=== PATIENT | female | born 1960 | race African-American/Black ===

== ENCOUNTER 2018-06-13 09:26 | Outpatient (CLI) | payer MEDICARE ==
--- NOTE | 2018-06-13 11:13 | BD ---
DEXA BONE DENSITY STUDY: History: Post-menopausal. Lumbar Spine: BMD (g/cm2) L1 1.011 T-Score: +0.2 L2 1.026 T-Score: 0.0 L3 1.124 T-Score: +0.4 L4 0.953 T-Score: -1.0 L1-L4 1.026 T-Score: -0.2 Femoral Neck: 0.671 T-Score: -2.1 Total Femur: 0.856 T-Score: -0.7 Impression: 1. Osteopenia of the left femoral neck and normal bone mineral density of lumbar spine. 2. 10-year fracture risk for major osteoporotic fracture is 3.7% and hip fracture 0.4%. These fractur e probabilities are calculated for an untreated patient. POS: [facility]
== END 2018-06-13 09:27 | disposition home or self-care (01) ==
LOC: BICMAMMO 09:26
PROVIDERS: ATTEND Internal Medicine
DX: Z12.31 Encounter for screening mammogram for malignant neoplasm of breast (principal); M85.89 Other specified disorders of bone density and structure, multiple sites; Z80.3 Family history of malignant neoplasm of breast
CPT/HCPCS: 77066; 77080; G0279

== ENCOUNTER 2018-10-26 15:48 | Emergency (ER) | payer MEDICARE ==
[2018-10-26] MEDS ORDERED: Acetaminophen 500 MG TAB ONE (16:25)
--- NOTE | 2018-10-26 16:55 | RAD ---
THREE VIEWS RIGHT FOOT: 10/26/18 HISTORY: Right foot pain. AP, lateral and oblique views right foot is obtained. Three views right foot demonstrate no definite evidence of right foot fractures, subluxations or bony lesions. IMPRESSION: Normal three views right foot. POS: [facility]
== END 2018-10-26 17:40 | disposition home or self-care (01) ==
LOC: ERS 15:48
DX: M79.671 Pain in right foot (principal); I25.2 Old myocardial infarction; E78.5 Hyperlipidemia, unspecified; I10 Essential (primary) hypertension

== ENCOUNTER 2020-02-07 08:08 | Outpatient (CLI) | payer MEDICARE ==
--- NOTE | 2020-02-07 09:31 | MRI ---
MRI lumbar spine noncontrast: HISTORY: Lumbar degenerative disc disease. Low back pain down the right leg. Numbness and tingling. COMPARISON: None FINDINGS: Appropriate T1 marrow signal intensity of the lumbar vertebra. Lumbar spine vertebral body height is maintained. No fracture. No significant STIR hyperintensity to suggest vertebral body edema or ligamentous injury Appropriate signal intensity visualized paraspinal muscles and solid organs Conus medullaris terminates at the inferior aspect of L1 T12-L1:Adequate disc hydration. No significant central canal stenosis or significant neural foraminal narrowing L1-L2:Adequate disc hydration. No posterior disc abnormality. Mild ligament flavum thickening and fac et hypertrophy. Neural foramina are patent L2-L3: Minimal disc desiccation without significant loss of disc space height. Broad-based disc bulge , ligament flavum thickening and facet hypertrophy result in mild central canal stenosis. Right neural foramen is mildly narrowed due to disc material. Patent left neural foramen. L3-L4:Minimal disc desiccation without significant loss of disc space height. Broad-based disc bulge, ligament flavum thickening and facet hypertrophy result in mild central canal stenosis. Bilaterally, neural foramina are patent L4-L5:Disc desiccation with mild loss of disc space height. Broad-based disc bulge with a superimpose d central disc herniation. Ligament flavum thickening and facet hypertrophy are present. Overall mild central canal stenosis. Encroachment upon bilateral subarticular zones without mass effect or ob scuration of either traversing L5 nerve root. Mild bilateral neural foraminal narrowing. L5-S1:Minimal disc desiccation. No significant loss of disc space height. Broad-based disc bulge cont acts the ventral thecal sac. Encroachment upon both subarticular zones. There is contact upon both traversing S1 nerve roots without significant obscuration. Mild to moderate bilateral neural foramina l narrowing. IMPRESSION: 1. Multilevel disc desiccation as detailed above. There is no high-grade central canal stenosis or hi gh-grade foraminal narrowing. 2. Encroachment upon bilateral subarticular zones without mass effect or obscuration of either thony sing L5 nerve roots or S1 nerve roots. 3. Mild to moderate bilateral neural foraminal narrowing at L5-S1.
== END 2020-02-07 08:09 | disposition home or self-care (01) ==
LOC: BICMRI 08:08
PROVIDERS: ATTEND Internal Medicine
DX: M51.36 Other intervertebral disc degeneration, lumbar region (principal); M48.07 Spinal stenosis, lumbosacral region
CPT/HCPCS: 72148

== ENCOUNTER 2020-09-29 08:41 | Outpatient (CLI) | payer MEDICARE ==
--- NOTE | 2020-09-29 09:07 | BD ---
EXAM: Bone densitometry using DEXA HISTORY: 60 yo female. Screening for postmenopausal osteoporosis FINDINGS: L1--bone mineral density 1.049 g/sq cm; T score 0.5 ; Z score 1.1 L2--bone mineral density 1.010 g/sq cm; T score -0.2 ; Z score 0.5 L3--bone mineral density 0.994 g/sq cm; T score -0.8 ; Z score -0.1 L4--bone mineral density 0.936 g/sq cm; T score -1.1 ; Z score -0.4 Total L1-L4--bone mineral density 0.996 g/sq cm; T score -0.5 ; Z score 0.2 Left femoral neck--bone mineral density0.651; T score -1.8 ; Z score -1.0 Total proximal left femur--bone mineral density 0.834; T score -0.9 ; Z score -0.5 The 10 year fracture risk for a major osteoporotic fracture is 3.6% and for a hip fracture is 0.3%. IMPRESSION: Osteopenia
--- NOTE | 2020-09-29 11:09 | MMO ---
Bilateral MAMMO Bilat Screen [facility]. CLINICAL HISTORY: Patient is 60 years old and is seen for screening. The patient has no family history of breast cancer. The patient has no personal history of cancer. VIEWS: The views performed were: bilateral craniocaudal with tomosynthesis and bilateral mediolateral oblique with tomosynthesis. FILMS COMPARED: The present examination has been compared to prior imaging studies performed at [facility] on 05/19/2009, 12/31/2015, 02/17/2017 and 06/13/2018. This study has been interpreted with the assistance of computer-aided detection. MAMMOGRAM FINDINGS: There are scattered fibroglandular densities. There are no suspicious masses, suspicious calcifications, or new areas of architectural distortion. IMPRESSION: THERE IS NO MAMMOGRAPHIC EVIDENCE OF MALIGNANCY. A ROUTINE FOLLOW-UP MAMMOGRAM IN 1 YEAR IS RECOMMENDED. THE RESULTS OF THIS EXAM WERE SENT TO THE PATIENT. ACR BI-RADS Category 1 - Negative MAMMOGRAPHY NOTE: 1. A negative mammogram report should not delay a biopsy if a dominant of clinically suspicious mass is present. 2. Approximately 10% to 15% of breast cancers are not detected by mammography. 3. Adenosis and dense breasts may obscure an underlying neoplasm. Reported by: EVELIA DALEY MD Electonically Signed: [id number]
== END 2020-09-29 08:42 | disposition home or self-care (01) ==
LOC: BICMAMMO 08:41
PROVIDERS: ATTEND Internal Medicine
DX: Z12.31 Encounter for screening mammogram for malignant neoplasm of breast (principal); Z13.820 Encounter for screening for osteoporosis; M85.89 Other specified disorders of bone density and structure, multiple sites; Z78.0 Asymptomatic menopausal state
CPT/HCPCS: 77063; 77067; 77080

== ENCOUNTER 2020-12-22 14:38 | Outpatient (CLI) | payer MEDICARE | END 2020-12-22 14:39 | disposition home or self-care (01) | LOC: BICULT 14:38 | PROVIDERS: ATTEND Internal Medicine | DX: I74.9 Embolism and thrombosis of unspecified artery (principal); I65.22 Occlusion and stenosis of left carotid artery | CPT/HCPCS: 93880 ==

== ENCOUNTER 2021-09-03 13:30 | Outpatient (CLI) | payer MEDICARE | END 2021-09-03 13:31 | disposition home or self-care (01) | LOC: BICMAMMO 13:30 | PROVIDERS: ATTEND Internal Medicine | DX: N63.0 Unspecified lump in unspecified breast (principal) | CPT/HCPCS: 76642; 77066; G0279 ==

== ENCOUNTER 2022-08-12 11:15 | Emergency (ER) | payer MEDICARE ==
[2022-08-12] MEDS ORDERED: Cyclobenzaprine 10 MG TAB ONE (12:45)
[2022-08-12] MEDS ORDERED: Lidocaine 5% Patch TD SCH (13:00)
[2022-08-13] MEDS ORDERED: Transdermal Patch Removal TOP SCH (01:00)
== END 2022-08-12 13:17 | disposition home or self-care (01) ==
LOC: ERS 11:15
DX: M25.512 Pain in left shoulder (principal); E78.5 Hyperlipidemia, unspecified; I10 Essential (primary) hypertension
CPT/HCPCS: 93005

== ENCOUNTER 2025-07-22 13:15 | Inpatient (IN) | payer MEDICARE ==
[2025-07-22 14:10] LABS: #Basophils Less than 0.03 10x3/uL (0.0-0.2); #Eosinophils 0.04 10x3/uL (0.0-0.7); #Monocytes 0.31 10x3/uL (0.11-0.59); #Neutrophils 3.80 10x3/uL (1.40-6.50); %Basophils 0.4 % (0.0-1.0); %Eosinophils 0.8 % (0.0-10.0); %Lymphocytes 20.9 % (21.0-51.0); %Monocytes 5.9 % (0.0-10.0); %Neutrophils 72.0 % (42.0-75.0); Hematocrit 41.8 % (36.0-47.0); Hemoglobin 13.8 g/dL (12.0-16.0); Mean Corpuscular Hemoglobin 29.1 pg (27.0-31.0); Mean Corpuscular Volume 88.2 fL (78.0-98.0); Platelet Count 170 10x3/uL (130-400); Red Blood Cell (RBC) Count 4.74 mill/uL (4.20-5.40); White Blood Cell (WBC) Count 5.27 10x3/uL (4.8-10.8)
[2025-07-22 14:35] LABS: ALT (SGPT) 20 U/L (Less than 34); AST (SGOT) 29 U/L (11-34); Albumin 3.6 g/dL (3.1-4.5); Alkaline Phosphatase 88 U/L (40-110); Anion Gap 13 mmol/L (10-20); BUN (Urea Nitrogen) 11 mg/dL (9.8-20.1); Bilirubin, Total 0.5 mg/dL (0.3-1.2); Calc. Creatinine Clearance 0 mL/min (70-130); Calcium 9.0 mg/dL (7.8-10.44); Carbon Dioxide 27 mmol/L (23-31); Chloride 109 mmol/L (98-107); Globulin 4.1 g/dL (2.4-3.5); Glucose 167 mg/dL (80-115); Potassium 3.9 mmol/L (3.5-5.1); Sodium 145 mmol/L (136-145)
[2025-07-22] MEDS ORDERED: Aspirin Chewable 81 MG TAB ONE (15:24)
[2025-07-22 16:20] LABS: Lipase 22 U/L (8-78); Magnesium 2.2 mg/dL (1.6-2.6)
[2025-07-22] MEDS ORDERED: Dextrose 50% Abboject 50 ML SYRINGE SLOW IVP PRN (16:36)
[2025-07-22] MEDS ORDERED: Glucagon 1 MG/ML KIT IM PRN (16:36)
[2025-07-22] MEDS ORDERED: hydrALAZINE 20 MG/ML VIAL ONE (17:44)
[2025-07-22 18:33] LABS: Cardiac Risk 2.9 (Less than 4.5); Cholesterol 147.0 mg/dl (< 200 Desired); HDL Cholesterol 50.0 mg/dL (>60 Neg Risk); LDL Cholesterol, Calculated 80.0 mg/dL; Triglycerides 87.0 mg/dL (Less than 150)
[2025-07-22 19:14] VITALS: BMI 37.1
[2025-07-22] MEDS: Acetaminophen 325 MG TAB PO PRN (21:24)
[2025-07-23 04:28] LABS: #Basophils Less than 0.03 10x3/uL (0.0-0.2); #Eosinophils 0.05 10x3/uL (0.0-0.7); #Monocytes 0.58 10x3/uL (0.11-0.59); #Neutrophils 2.43 10x3/uL (1.40-6.50); %Basophils 0.2 % (0.0-1.0); %Eosinophils 1.1 % (0.0-10.0); %Lymphocytes 33.5 % (21.0-51.0); %Monocytes 12.5 % (0.0-10.0); %Neutrophils 52.5 % (42.0-75.0); Hematocrit 41.4 % (36.0-47.0); Hemoglobin 13.4 g/dL (12.0-16.0); Mean Corpuscular Hemoglobin 28.8 pg (27.0-31.0); Mean Corpuscular Volume 88.8 fL (78.0-98.0); Platelet Count 168 10x3/uL (130-400); Red Blood Cell (RBC) Count 4.66 mill/uL (4.20-5.40); White Blood Cell (WBC) Count 4.63 10x3/uL (4.8-10.8)
[2025-07-23 04:45] LABS: ALT (SGPT) 19 U/L (Less than 34); AST (SGOT) 31 U/L (11-34); Albumin 3.4 g/dL (3.1-4.5); Alkaline Phosphatase 87 U/L (40-110); Anion Gap 12 mmol/L (10-20); BUN (Urea Nitrogen) 10 mg/dL (9.8-20.1); Bilirubin, Total 0.4 mg/dL (0.3-1.2); Calc. Creatinine Clearance 132 mL/min (70-130); Calcium 9.3 mg/dL (7.8-10.44); Carbon Dioxide 23 mmol/L (23-31); Chloride 113 mmol/L (98-107); Globulin 3.7 g/dL (2.4-3.5); Glucose 106 mg/dL (80-115); Potassium 3.5 mmol/L (3.5-5.1); Sodium 144 mmol/L (136-145)
[2025-07-23] MEDS: Aspirin Chewable 81 MG TAB PO SCH (08:22)
[2025-07-23] MEDS: Losartan 25 MG TAB PO SCH (08:22)
[2025-07-23] MEDS: Enoxaparin 40 MG (0.4 mL) SYRINGE SC SCH (08:23)
[2025-07-23] MEDS ORDERED: Communication Order-Pharmacy FS SCH (18:15)
[2025-07-23] MEDS: hydrALAZINE 20 MG/ML VIAL SLOW IVP PRN (20:10)
[2025-07-24 05:35] LABS: #Basophils Less than 0.03 10x3/uL (0.0-0.2); #Eosinophils Less than 0.03 10x3/uL (0.0-0.7); #Monocytes 0.33 10x3/uL (0.11-0.59); #Neutrophils 4.02 10x3/uL (1.40-6.50); %Basophils 0.2 % (0.0-1.0); %Eosinophils 0.2 % (0.0-10.0); %Lymphocytes 25.1 % (21.0-51.0); %Monocytes 5.6 % (0.0-10.0); %Neutrophils 68.7 % (42.0-75.0); Hematocrit 43.3 % (36.0-47.0); Hemoglobin 13.8 g/dL (12.0-16.0); Mean Corpuscular Hemoglobin 28.4 pg (27.0-31.0); Mean Corpuscular Volume 89.1 fL (78.0-98.0); Platelet Count 193 10x3/uL (130-400); Red Blood Cell (RBC) Count 4.86 mill/uL (4.20-5.40); White Blood Cell (WBC) Count 5.85 10x3/uL (4.8-10.8)
[2025-07-24 09:21] LABS: ALT (SGPT) 19 U/L (Less than 34); AST (SGOT) 47 U/L (11-34); Albumin 3.5 g/dL (3.1-4.5); Alkaline Phosphatase 87 U/L (40-110); Anion Gap 13 mmol/L (10-20); BUN (Urea Nitrogen) 14 mg/dL (9.8-20.1); Bilirubin, Total 0.6 mg/dL (0.3-1.2); Calc. Creatinine Clearance 134 mL/min (70-130); Calcium 9.2 mg/dL (7.8-10.44); Carbon Dioxide 24 mmol/L (23-31); Chloride 108 mmol/L (98-107); Globulin 4.4 g/dL (2.4-3.5); Glucose 97 mg/dL (80-115); Potassium 3.9 mmol/L (3.5-5.1); Sodium 141 mmol/L (136-145)
[2025-07-24] MEDS ORDERED: Adenosine 6 mg (2 mL) VIAL ONE (10:02)
[2025-07-24] MEDS ORDERED: Heparin 10,000 UNITS/ 10 ML VIAL ONE (10:02)
[2025-07-24] MEDS ORDERED: Lidocaine 1% (PF) 30 ML VIAL ONE (10:03)
[2025-07-24] MEDS ORDERED: Nitroglycerin 50 MG/250 ML BOT 250 ML ONE (10:03)
[2025-07-24] MEDS ORDERED: Iopamidol 370 76% 100 ML VIAL ONE (10:53)
[2025-07-24] MEDS ORDERED: Nitroglycerin 0.4 MG TAB (25 Tab Bottle) SL PRN (11:54)
[2025-07-24 16:07] VITALS: TEMP 99.3
[2025-07-24 18:03] VITALS: BP 120/74
[2025-07-25] MEDS ORDERED: PNEUMOC 20-VAL CONJ-DIP CRM/PF 0.5 ML SYRINGE IM ONE (09:00)
== END 2025-07-24 18:41 | disposition home or self-care (01) | DRG 282 ==
LOC: ERS 13:15 → OBS 16:36 → OBSVTOIN 07-23 13:44
PROVIDERS: ADMIT Emergency Medicine; ATTEND Emergency Medicine
PROC: 4A023N7 Measurement of Cardiac Sampling and Pressure, Left Heart, Percutaneous Approach (ICD-10-PCS; principal; 2025-07-24)
PROC: B2111ZZ Fluoroscopy of Multiple Coronary Arteries using Low Osmolar Contrast (ICD-10-PCS; 2025-07-24)
PROC: B2151ZZ Fluoroscopy of Left Heart using Low Osmolar Contrast (ICD-10-PCS; 2025-07-24)
DX: I16.0 Hypertensive urgency (principal); I21.4 Non-ST elevation (NSTEMI) myocardial infarction; I25.119 Atherosclerotic heart disease of native coronary artery with unspecified angina pectoris; I10 Essential (primary) hypertension; E11.9 Type 2 diabetes mellitus without complications; M19.90 Unspecified osteoarthritis, unspecified site; I25.2 Old myocardial infarction; Z88.2 Allergy status to sulfonamides; Z88.8 Allergy status to other drugs, medicaments and biological substances; Z98.890 Other specified postprocedural states; Z79.899 Other long term (current) drug therapy; E66.9 Obesity, unspecified; Z68.37 Body mass index [BMI] 37.0-37.9, adult
CPT/HCPCS: 36415; 36416; 71045; 80053; 80061; 83036; 83690; 83735; 83880; 84443; 84484; 85025; 93005; 93306; 93458; 96372; 96374; 99152; 99153; C1769; C1894; G0378; J0153; J0360; J0461; J1644; J1650; J2003; Q9967